=== PATIENT | female | born 1995 | race Caucasian/White ===

== ENCOUNTER 2017-09-09 19:04 | Inpatient (IN) | payer BC ==
[~2017-09-09] VITALS: Ht 157.5 cm; Wt 74.8 kg
[2017-09-09 19:20] VITALS: BP_SYST 119
[2017-09-09 19:38] LABS: BILIRUBIN,URINE 1+ (NEGATIVE); BLOOD, URINE NEGATIVE (NEGATIVE); CLARITY/URINE CLEAR (CLEAR); COLOR,URINE YELLOW (YELLOW); GLUCOSE,URINE NEGATIVE (NEGATIVE); KETONES,URINE 1+ (NEGATIVE); LEUKOCYTE ESTERASE ,URINE TRACE (NEGATIVE); NITRITE, URINE NEGATIVE (NEGATIVE); PH,URINE 5.5 (5.0-8.0); PROTEIN URINE NEGATIVE (NEGATIVE)
[2017-09-09 19:40] LABS: UROBILINOGEN,URINE >=8 (0.2-1.0)
[2017-09-09 19:49] LABS: BASOPHILS % (AUTO) 0.6 % (0.0-2.0); EOSINOPHILS # (AUTO) 0.1 K/uL (0.0-0.4); EOSINOPHILS % (AUTO) 0.8 % (0.0-4.0); HEMATOCRIT 35.3 % (36-48); HEMOGLOBIN 11.2 g/dL (12.0-16.0); LYMPHOCYTES # (AUTO) 1.7 K/uL (1.0-5.5); LYMPHOCYTES % (AUTO) 22.3 % (20.5-51.5); MEAN CORPUSCULAR HEMOGLOBIN 23 pg (27-31); MEAN CORPUSCULAR HGB CONC 32 % (32-36); MEAN CORPUSCULAR VOLUME 73 fL (79.0-98.0); MONOCYTES # (AUTO) 0.8 K/uL (0.0-1.0); MONOCYTES % (AUTO) 10.3 % (1.7-9.3); NEUTROPHILS # (AUTO) 4.8 K/uL (1.8-7.7); PLATELET COUNT (AUTO) 324 K/uL (130-430); RED BLOOD CELL COUNT(AUTO) 4.87 MIL/uL (4.2-6.2); RED CELL DISTRIBUTION WIDTH 16.7 % (9.0-15.0); WHITE BLOOD COUNT (AUTO) 7.4 K/uL (4.8-10.8)
[2017-09-09 19:53] LABS: BACTERIA,URINE FEW /HPF (None Seen); MUCUS,URINE 1+ /LPF (None Seen); RBC,URINE 0-3 /HPF (0-3)
[2017-09-09] MEDS ORDERED: PROCHLORPERAZINE EDISYLATE 10 MG/2 ML VIAL IVP ONE (20:00)
[2017-09-09] MEDS ORDERED: NACL 0.9% 1,000 ML IV ONE (20:00)
[2017-09-09 20:04] LABS: CALCIUM 9.1 mg/dL (8.4-11.0); CREATININE 0.9 mg/dL (0.55-1.30); POTASSIUM 3.4 mmol/L (3.5-5.1)
[2017-09-09 20:09] LABS: ALBUMIN 4.2 g/dL (3.4-4.8); TOTAL BILIRUBIN 1.4 mg/dL (0.0-1.0)
[2017-09-09] MEDS ORDERED: MORPHINE 4 MG/ML INJ. SYRINGE IVP ONE (20:15)
[2017-09-09] MEDS ORDERED: ONDANSETRON HCL 4 MG/2 ML VIAL IVP ONE (22:45)
[2017-09-09 23:00] VITALS: BP_SYST 111
[2017-09-09 23:09] VITALS: BP_SYST 111
[2017-09-09] MEDS ORDERED: ONDANSETRON HCL 4 MG/2 ML VIAL IVP PRN (23:15)
[2017-09-09] MEDS ORDERED: MORPHINE 4 MG/ML INJ. SYRINGE IVP PRN (23:15)
[2017-09-09] MEDS ORDERED: ACETAMINOPHEN 325 MG TABLET PO PRN (23:15)
[2017-09-09] MEDS ORDERED: MORPHINE 2 MG/ML INJ. SYRINGE IVP PRN (23:15)
[2017-09-09] MEDS: LR 1,000 ML IV SCH (23:34)
[2017-09-10 07:05] LABS: BASOPHILS % (AUTO) 0.2 % (0.0-2.0); EOSINOPHILS % (AUTO) 0.1 % (0.0-4.0); HEMATOCRIT 31.8 % (36-48); HEMOGLOBIN 10.3 g/dL (12.0-16.0); LYMPHOCYTES # (AUTO) 0.9 K/uL (1.0-5.5); LYMPHOCYTES % (AUTO) 15.1 % (20.5-51.5); MEAN CORPUSCULAR HEMOGLOBIN 24 pg (27-31); MEAN CORPUSCULAR HGB CONC 32 % (32-36); MEAN CORPUSCULAR VOLUME 73 fL (79.0-98.0); MONOCYTES # (AUTO) 0.4 K/uL (0.0-1.0); MONOCYTES % (AUTO) 6.4 % (1.7-9.3); NEUTROPHILS # (AUTO) 4.6 K/uL (1.8-7.7); NEUTROPHILS % (AUTO) 78.2 % (40.0-70.0); RED BLOOD CELL COUNT(AUTO) 4.35 MIL/uL (4.2-6.2); RED CELL DISTRIBUTION WIDTH 16.6 % (9.0-15.0); WHITE BLOOD COUNT (AUTO) 5.9 K/uL (4.8-10.8)
[2017-09-10 07:08] LABS: ALBUMIN 3.5 g/dL (3.4-4.8); CALCIUM 8.9 mg/dL (8.4-11.0); CREATININE 0.67 mg/dL (0.55-1.30); TOTAL BILIRUBIN 0.7 mg/dL (0.0-1.0)
[2017-09-10 08:30] VITALS: BP_SYST 113
[2017-09-10] MEDS: LR 1,000 ML IV SCH ×2 (08:56→21:53)
[2017-09-10] MEDS ORDERED: CALCIUM CARBONATE 500 MG/ TAB.CHEW PO PRN (09:00)
[2017-09-10 10:34] LABS: PLATELET COUNT (AUTO) 290 K/uL (130-430)
[2017-09-10 11:54] VITALS: BP_SYST 106
[2017-09-10] MEDS ORDERED: PANTOPRAZOLE SODIUM 40 MG/VIAL (PROTONIX) IVP ONE ×2 (14:30→15:15)
[2017-09-10] MEDS: traMADol HCL HCL 50 MG TABLET (ULTRAM) PO PRN (15:28)
[2017-09-10 16:01] VITALS: BP_SYST 126
[2017-09-10] MEDS: MORPHINE 4 MG/ML INJ. SYRINGE IVP PRN ×2 (17:28→21:52)
[2017-09-10 20:00] VITALS: BP_SYST 122
[2017-09-11 01:15] VITALS: BP_SYST 113
[2017-09-11] MEDS: LR 1,000 ML IV SCH ×3 (05:00→18:28)
[2017-09-11 06:50] LABS: BASOPHILS % (AUTO) 0.5 % (0.0-2.0); EOSINOPHILS % (AUTO) 0.7 % (0.0-4.0); HEMATOCRIT 29.9 % (36-48); HEMOGLOBIN 9.5 g/dL (12.0-16.0); LYMPHOCYTES # (AUTO) 1.5 K/uL (1.0-5.5); LYMPHOCYTES % (AUTO) 28.3 % (20.5-51.5); MEAN CORPUSCULAR HEMOGLOBIN 23 pg (27-31); MEAN CORPUSCULAR HGB CONC 32 % (32-36); MEAN CORPUSCULAR VOLUME 73 fL (79.0-98.0); MONOCYTES # (AUTO) 0.6 K/uL (0.0-1.0); MONOCYTES % (AUTO) 10.3 % (1.7-9.3); NEUTROPHILS # (AUTO) 3.3 K/uL (1.8-7.7); NEUTROPHILS % (AUTO) 60.2 % (40.0-70.0); PLATELET COUNT (AUTO) 252 K/uL (130-430); RED BLOOD CELL COUNT(AUTO) 4.09 MIL/uL (4.2-6.2); RED CELL DISTRIBUTION WIDTH 16.6 % (9.0-15.0); WHITE BLOOD COUNT (AUTO) 5.4 K/uL (4.8-10.8)
[2017-09-11 07:04] LABS: INR 1.1 (0.8-1.2); PROTHROMBIN TIME 11.2 SECS (9.5-12.5)
[2017-09-11 07:20] LABS: ALBUMIN 3.3 g/dL (3.4-4.8); CALCIUM 8.8 mg/dL (8.4-11.0); CREATININE 0.75 mg/dL (0.55-1.30); POTASSIUM 3.8 mmol/L (3.5-5.1); TOTAL BILIRUBIN 0.5 mg/dL (0.0-1.0)
[2017-09-11 08:27] VITALS: BP_SYST 111
[2017-09-11 11:22] VITALS: BP_SYST 113
[2017-09-11 15:37] VITALS: BP_SYST 131
[2017-09-11 20:00] VITALS: BP_SYST 125
[2017-09-12] VITALS (7 sets, daily range): BP systolic 114–128
[2017-09-12] MEDS: LR 1,000 ML IV SCH (05:13)
[2017-09-12 07:05] LABS: BASOPHILS % (AUTO) 0.4 % (0.0-2.0); EOSINOPHILS # (AUTO) 0.1 K/uL (0.0-0.4); EOSINOPHILS % (AUTO) 0.9 % (0.0-4.0); HEMATOCRIT 31.1 % (36-48); LYMPHOCYTES # (AUTO) 1.2 K/uL (1.0-5.5); LYMPHOCYTES % (AUTO) 21.1 % (20.5-51.5); MEAN CORPUSCULAR HEMOGLOBIN 23 pg (27-31); MEAN CORPUSCULAR HGB CONC 32 % (32-36); MEAN CORPUSCULAR VOLUME 72 fL (79.0-98.0); MONOCYTES # (AUTO) 0.6 K/uL (0.0-1.0); MONOCYTES % (AUTO) 10.4 % (1.7-9.3); NEUTROPHILS # (AUTO) 3.9 K/uL (1.8-7.7); NEUTROPHILS % (AUTO) 67.2 % (40.0-70.0); PLATELET COUNT (AUTO) 261 K/uL (130-430); RED CELL DISTRIBUTION WIDTH 16.7 % (9.0-15.0); WHITE BLOOD COUNT (AUTO) 5.8 K/uL (4.8-10.8)
[2017-09-12 07:14] LABS: CALCIUM 8.8 mg/dL (8.4-11.0); CREATININE 0.72 mg/dL (0.55-1.30); POTASSIUM 3.8 mmol/L (3.5-5.1)
[2017-09-12 07:21] LABS: ALBUMIN 3.4 g/dL (3.4-4.8); TOTAL BILIRUBIN 0.8 mg/dL (0.0-1.0)
[2017-09-12] MEDS ORDERED: KETOROLAC TROMETHAMINE 30 MG VIAL IVP ONE (12:40)
[2017-09-12] MEDS ORDERED: MIDAZOLAM HCL 5 MG/5 ML VIAL IVP ONE (12:40)
[2017-09-12] MEDS ORDERED: DEXAMETHASONE SOD PHOSPHATE 4 MG/ML VIAL IVP ONE (12:40)
[2017-09-12] MEDS ORDERED: fentaNYL CITRATE 250 MCG/5 ML AMP IV ONE (12:40)
[2017-09-12] MEDS ORDERED: ONDANSETRON HCL 4 MG/2 ML VIAL IVP ONE (12:40)
[2017-09-12] MEDS ORDERED: SEVOFLURANE 15 MIN GAS INH ONE (12:40)
[2017-09-12] MEDS ORDERED: ROCURONIUM BROMIDE 10 MG/ML (ZEMURON) IV ONE (12:40)
[2017-09-12] MEDS ORDERED: CEFAZOLIN 1 GM IVPB PREMIX 50 ML IV ONE (12:40)
[2017-09-12] MEDS ORDERED: PROPOFOL 200MG/ 20ML VIAL (DIPRIVAN) IV ONE (12:40)
[2017-09-12] MEDS ORDERED: GADOPENTETATE DIMEGLUMINE 15 ML VIAL IV ONE (13:37)
[2017-09-12] MEDS ORDERED: IOHEXOL 100 ML IV ONE (13:37)
[2017-09-12] MEDS ORDERED: LR 1,000 ML IV SCH (14:01)
[2017-09-12] MEDS ORDERED: MORPHINE 4 MG/ML INJ. SYRINGE IVP PRN ×3 (14:15)
[2017-09-12] MEDS ORDERED: METOCLOPRAMIDE HCL 10 MG/2 ML VIAL IVP PRN (14:15)
[2017-09-12] MEDS ORDERED: HYDROmorphone 1 MG INJ. 1 MG/ML AMPUL IVP PRN (14:30)
[2017-09-12] MEDS ORDERED: ACETAMINOPHEN 325 MG TABLET PO PRN (14:30)
[2017-09-12] MEDS ORDERED: ONDANSETRON HCL 4 MG/2 ML VIAL IVP PRN (14:30)
[2017-09-12] MEDS: traMADol HCL HCL 50 MG TABLET (ULTRAM) PO PRN (15:33)
[2017-09-12] MEDS: CEFAZOLIN 1 GM IVPB PREMIX 50 ML IV SCH (16:41)
[2017-09-12] MEDS: D5/0.45 NS 1,000 ML IV SCH (16:42)
[2017-09-12] MEDS: HYDROcodone/ACETAMIN 5-325 MG TAB (NORCO/ VICODIN) PO PRN (22:41)
[2017-09-13] MEDS: CEFAZOLIN 1 GM IVPB PREMIX 50 ML IV SCH (00:42)
[2017-09-13] MEDS: D5/0.45 NS 1,000 ML IV SCH ×3 (04:16→20:23)
[2017-09-13] MEDS: HYDROcodone/ACETAMIN 5-325 MG TAB (NORCO/ VICODIN) PO PRN (07:05)
[2017-09-13 07:23] LABS: BASOPHILS % (AUTO) 0.4 % (0.0-2.0); EOSINOPHILS % (AUTO) 0.3 % (0.0-4.0); HEMATOCRIT 33.9 % (36-48); HEMOGLOBIN 10.7 g/dL (12.0-16.0); LYMPHOCYTES # (AUTO) 1.5 K/uL (1.0-5.5); LYMPHOCYTES % (AUTO) 15.9 % (20.5-51.5); MEAN CORPUSCULAR HEMOGLOBIN 23 pg (27-31); MEAN CORPUSCULAR HGB CONC 32 % (32-36); MEAN CORPUSCULAR VOLUME 73 fL (79.0-98.0); MONOCYTES # (AUTO) 0.8 K/uL (0.0-1.0); MONOCYTES % (AUTO) 8.7 % (1.7-9.3); NEUTROPHILS # (AUTO) 7.4 K/uL (1.8-7.7); PLATELET COUNT (AUTO) 298 K/uL (130-430); RED BLOOD CELL COUNT(AUTO) 4.68 MIL/uL (4.2-6.2); WHITE BLOOD COUNT (AUTO) 9.7 K/uL (4.8-10.8)
[2017-09-13 07:40] LABS: ALBUMIN 3.4 g/dL (3.4-4.8); CALCIUM 9.1 mg/dL (8.4-11.0); CREATININE 0.87 mg/dL (0.55-1.30); POTASSIUM 3.6 mmol/L (3.5-5.1); TOTAL BILIRUBIN 0.8 mg/dL (0.0-1.0)
[2017-09-13 07:59] VITALS: BP_SYST 108
[2017-09-13 11:15] VITALS: BP_SYST 104
[2017-09-13 13:11] LABS: NEUTROPHILS % (AUTO) 74.7 % (40.0-70.0)
[2017-09-13] MEDS: MORPHINE 4 MG/ML INJ. SYRINGE IVP PRN ×2 (14:03→18:32)
[2017-09-13 16:39] VITALS: BP_SYST 105
[2017-09-13 20:00] VITALS: BP_SYST 110
[2017-09-13 23:18] VITALS: BP_SYST 109
[2017-09-14] MEDS: D5/0.45 NS 1,000 ML IV SCH ×2 (01:01→16:23)
[2017-09-14 07:12] LABS: BASOPHILS % (AUTO) 0.3 % (0.0-2.0); EOSINOPHILS # (AUTO) 0.1 K/uL (0.0-0.4); EOSINOPHILS % (AUTO) 1.1 % (0.0-4.0); HEMATOCRIT 30.8 % (36-48); HEMOGLOBIN 9.9 g/dL (12.0-16.0); LYMPHOCYTES # (AUTO) 1.2 K/uL (1.0-5.5); LYMPHOCYTES % (AUTO) 14.8 % (20.5-51.5); MEAN CORPUSCULAR HEMOGLOBIN 24 pg (27-31); MEAN CORPUSCULAR HGB CONC 32 % (32-36); MEAN CORPUSCULAR VOLUME 73 fL (79.0-98.0); MONOCYTES # (AUTO) 0.7 K/uL (0.0-1.0); MONOCYTES % (AUTO) 8.8 % (1.7-9.3); NEUTROPHILS # (AUTO) 5.8 K/uL (1.8-7.7); PLATELET COUNT (AUTO) 242 K/uL (130-430); RED BLOOD CELL COUNT(AUTO) 4.23 MIL/uL (4.2-6.2); RED CELL DISTRIBUTION WIDTH 17.1 % (9.0-15.0); WHITE BLOOD COUNT (AUTO) 7.8 K/uL (4.8-10.8)
[2017-09-14] MEDS: MORPHINE 4 MG/ML INJ. SYRINGE IVP PRN (07:17)
[2017-09-14 07:21] LABS: CALCIUM 8.5 mg/dL (8.4-11.0); CREATININE 0.75 mg/dL (0.55-1.30); POTASSIUM 3.9 mmol/L (3.5-5.1); TOTAL BILIRUBIN 0.5 mg/dL (0.0-1.0)
[2017-09-14 08:00] VITALS: BP_SYST 124
[2017-09-14 12:29] VITALS: BP_SYST 116
[2017-09-14 16:40] VITALS: BP_SYST 109
[2017-09-14 17:13] VITALS: BP_SYST 109
[2017-09-14] MEDS ORDERED: HYDR-1189 PO (18:21)
[2017-09-14] MEDS ORDERED: ONDA8TAB6 PO (18:22)
[2017-09-14] MEDS ORDERED: CEPH-568 PO (18:23)
[2017-09-16] MEDS ORDERED: MILK OF MAGNESIA 30 ML UDC PO PRN (11:15)
[2017-09-16] MEDS ORDERED: BISACODYL 10 MG/SUPPOSITORY RC PRN (11:15)
== END 2017-09-14 18:50 | disposition home or self-care (01) | DRG 419 ==
LOC: SED 19:04 → SMU 22:48
PROVIDERS: ADMIT Internal Medicine; ATTEND Internal Medicine
PROC: BF131ZZ Fluoroscopy of Gallbladder and Bile Ducts using Low Osmolar Contrast (ICD-10-PCS; 2017-09-12)
PROC: 0FT44ZZ Resection of Gallbladder, Percutaneous Endoscopic Approach (ICD-10-PCS; principal; 2017-09-12 12:00)
DX: K80.62 Calculus of gallbladder and bile duct with acute cholecystitis without obstruction (principal); R79.89 Other specified abnormal findings of blood chemistry; Z79.899 Other long term (current) drug therapy
CPT/HCPCS: 36415; 74181; 76000; 76705; 78226; 80053; 81000-TC; 81025; 83690-TC; 84703; 85025; 85610-TC; 85730-TC; 87070-TC; 87075-TC; 87081; 88304; 94010; 96361; 96374; 96375; 99285; A9537; A9579; C9113; J0690; J0780; J1100; J1885; J2250; J2270; J2405; J2704; J3010; J7030; J7120; Q9967

== ENCOUNTER 2017-09-14 23:12 | Emergency (ER) | payer BC ==
[~2017-09-14] VITALS: Ht 157.5 cm; Wt 74.8 kg
[~2017-09-14 23:12] MED LIST: CEPH-568 PO; HYDR-1189 PO; ONDA8TAB6 PO
[2017-09-14 23:21] VITALS: BP_SYST 133
[2017-09-14] MEDS ORDERED: MORPHINE 4 MG/ML INJ. SYRINGE IVP ONE (23:45)
[2017-09-14] MEDS ORDERED: ONDANSETRON HCL 4 MG/2 ML VIAL IVP ONE (23:45)
[2017-09-14] MEDS ORDERED: NACL 0.9% 1,000 ML IV ONE (23:45)
[2017-09-15] LABS: BILIRUBIN,URINE NEGATIVE (NEGATIVE); CLARITY/URINE CLEAR (CLEAR); COLOR,URINE YELLOW (YELLOW); GLUCOSE,URINE NEGATIVE (NEGATIVE); KETONES,URINE TRACE (NEGATIVE); LEUKOCYTE ESTERASE ,URINE NEGATIVE (NEGATIVE); NITRITE, URINE NEGATIVE (NEGATIVE); PROTEIN URINE NEGATIVE (NEGATIVE)
[2017-09-15 00:02] LABS: BLOOD, URINE TRACE (NEGATIVE)
[2017-09-15 00:13] LABS: BACTERIA,URINE FEW /HPF (None Seen); RBC,URINE 0-3 /HPF (0-3); WBC,URINE 0-3 /HPF (0-3)
[2017-09-15 00:24] LABS: BASOPHILS % (AUTO) 0.3 % (0.0-2.0); EOSINOPHILS # (AUTO) 0.1 K/uL (0.0-0.4); EOSINOPHILS % (AUTO) 1.2 % (0.0-4.0); HEMOGLOBIN 11.4 g/dL (12.0-16.0); LYMPHOCYTES # (AUTO) 1.1 K/uL (1.0-5.5); MEAN CORPUSCULAR HEMOGLOBIN 23 pg (27-31); MEAN CORPUSCULAR HGB CONC 31 % (32-36); MEAN CORPUSCULAR VOLUME 73 fL (79.0-98.0); MONOCYTES # (AUTO) 0.7 K/uL (0.0-1.0); MONOCYTES % (AUTO) 8.5 % (1.7-9.3); NEUTROPHILS # (AUTO) 6.3 K/uL (1.8-7.7); PLATELET COUNT (AUTO) 339 K/uL (130-430); RED BLOOD CELL COUNT(AUTO) 5.07 MIL/uL (4.2-6.2); WHITE BLOOD COUNT (AUTO) 8.2 K/uL (4.8-10.8)
[2017-09-15 00:27] LABS: CALCIUM 9.2 mg/dL (8.4-11.0); CREATININE 0.77 mg/dL (0.55-1.30); POTASSIUM 3.6 mmol/L (3.5-5.1)
[2017-09-15] MEDS ORDERED: MORPHINE 2 MG/ML INJ. SYRINGE IVP ONE ×2 (00:30→01:15)
[2017-09-15 00:33] LABS: ALBUMIN 3.9 g/dL (3.4-4.8)
[2017-09-15] MEDS ORDERED: MORPHINE SULFATE 10 MG/ML VIAL ONE ×2 (00:33→01:13)
[2017-09-15 00:38] LABS: TOTAL BILIRUBIN 0.8 mg/dL (0.0-1.0)
[2017-09-15 02:38] VITALS: BP_SYST 120
== END 2017-09-15 02:38 | disposition home or self-care (01) ==
LOC: SED 23:12
DX: G89.18 Other acute postprocedural pain (principal); K59.00 Constipation, unspecified; Z90.49 Acquired absence of other specified parts of digestive tract
CPT/HCPCS: 36415; 80053; 81000; 81025; 85025; 96361; 96374; 96375; 96376; 99284; J2270; J2405; J7030

== ENCOUNTER 2017-09-16 07:27 | Inpatient (IN) | payer BC ==
[~2017-09-16] VITALS: Ht 157.5 cm; Wt 77.1 kg
[2017-09-16 07:27] VITALS: BP_SYST 113
[2017-09-16] MEDS ORDERED: NACL 0.9% 1,000 ML IV ONE (07:45)
[2017-09-16] MEDS ORDERED: MORPHINE 4 MG/ML INJ. SYRINGE IVP ONE (07:45)
[2017-09-16] MEDS ORDERED: ONDANSETRON HCL 4 MG/2 ML VIAL IVP ONE ×2 (07:45→13:05)
[2017-09-16 08:17] LABS: CALCIUM 9.5 mg/dL (8.4-11.0); CREATININE 0.81 mg/dL (0.55-1.30); POTASSIUM 4.3 mmol/L (3.5-5.1)
[2017-09-16 08:18] LABS: BILIRUBIN,URINE 2+ (NEGATIVE); CLARITY/URINE SL HAZY (CLEAR); COLOR,URINE YELLOW (YELLOW); GLUCOSE,URINE NEGATIVE (NEGATIVE); KETONES,URINE 3+ (NEGATIVE); LEUKOCYTE ESTERASE ,URINE TRACE (NEGATIVE); NITRITE, URINE NEGATIVE (NEGATIVE); PROTEIN URINE 1+ (NEGATIVE)
[2017-09-16 08:21] LABS: INR 1.1 (0.8-1.2); PROTHROMBIN TIME 11.2 SECS (9.5-12.5)
[2017-09-16 08:22] LABS: ALBUMIN 4.1 g/dL (3.4-4.8); TOTAL BILIRUBIN 1.3 mg/dL (0.0-1.0)
[2017-09-16 08:23] LABS: BLOOD, URINE TRACE (NEGATIVE)
[2017-09-16 08:27] LABS: BASOPHILS % (AUTO) 0.1 % (0.0-2.0); EOSINOPHILS # (AUTO) 0.1 K/uL (0.0-0.4); EOSINOPHILS % (AUTO) 1.2 % (0.0-4.0); HEMATOCRIT 38.1 % (36-48); HEMOGLOBIN 11.6 g/dL (12.0-16.0); LYMPHOCYTES # (AUTO) 0.6 K/uL (1.0-5.5); LYMPHOCYTES % (AUTO) 5.5 % (20.5-51.5); MEAN CORPUSCULAR HEMOGLOBIN 22 pg (27-31); MEAN CORPUSCULAR HGB CONC 30 % (32-36); MEAN CORPUSCULAR VOLUME 73 fL (79.0-98.0); MONOCYTES # (AUTO) 0.6 K/uL (0.0-1.0); MONOCYTES % (AUTO) 6.2 % (1.7-9.3); NEUTROPHILS # (AUTO) 9.1 K/uL (1.8-7.7); PLATELET COUNT (AUTO) 360 K/uL (130-430); RED BLOOD CELL COUNT(AUTO) 5.24 MIL/uL (4.2-6.2)
[2017-09-16 08:28] LABS: WHITE BLOOD COUNT (AUTO) 10.4 K/uL (4.8-10.8)
[2017-09-16 09:08] LABS: BACTERIA,URINE FEW /HPF (None Seen); MUCUS,URINE None Seen /LPF (None Seen); RBC,URINE 0-3 /HPF (0-3); WBC,URINE 0-3 /HPF (0-3)
[2017-09-16] MEDS ORDERED: D5/0.45 NS 1,000 ML IV SCH (10:15)
[2017-09-16 10:50] VITALS: BP_SYST 125
[2017-09-16] MEDS ORDERED: ONDANSETRON HCL 4 MG/2 ML VIAL IVP PRN ×2 (11:00→18:15)
[2017-09-16] MEDS ORDERED: MORPHINE 4 MG/ML INJ. SYRINGE IVP PRN ×2 (11:00)
[2017-09-16] MEDS ORDERED: KETOROLAC TROMETHAMINE 30 MG VIAL IVP ONE ×2 (11:15→13:05)
[2017-09-16] MEDS ORDERED: MILK OF MAGNESIA 30 ML UDC PO PRN (11:30)
[2017-09-16] MEDS ORDERED: BISACODYL 10 MG/SUPPOSITORY RC PRN (12:45)
[2017-09-16] MEDS ORDERED: fentaNYL CITRATE/PF 100 MCG/2 ML AMP IVP ONE (13:05)
[2017-09-16] MEDS ORDERED: MIDAZOLAM HCL 5 MG/5 ML VIAL IVP ONE (13:05)
[2017-09-16] MEDS ORDERED: PROPOFOL 200MG/ 20ML VIAL (DIPRIVAN) IV ONE (13:05)
[2017-09-16] MEDS ORDERED: LIDOCAINE 1% 10 MG/ML, 20 ML MDV INJ ONE (13:05)
[2017-09-16] MEDS ORDERED: SEVOFLURANE 15 MIN GAS INH ONE (13:05)
[2017-09-16] MEDS ORDERED: SUCCINYLCHOLINE CHLORIDE 20 MG/ML(QUELICIN) IVP ONE (13:05)
[2017-09-16] MEDS ORDERED: LR 1,000 ML IV.SOLN IV ONE (13:05)
[2017-09-16] MEDS ORDERED: MEPERIDINE HCL/PF 100 MG/ML AMP IM ONE (13:05)
[2017-09-16] MEDS ORDERED: DEXAMETHASONE SOD PHOSPHATE 4 MG/ML VIAL IVP ONE (13:05)
[2017-09-16] MEDS: KETOROLAC TROMETHAMINE 30 MG VIAL IVP PRN (16:06)
[2017-09-16] MEDS ORDERED: MORPHINE 2 MG/ML INJ. SYRINGE IVP PRN (18:15)
[2017-09-16] MEDS ORDERED: LORazepam 2 MG/ML VIAL IVP PRN (18:15)
[2017-09-16] MEDS: MORPHINE 4 MG/ML INJ. SYRINGE IVP PRN ×2 (19:16→23:39)
[2017-09-16 19:24] VITALS: BP_SYST 125
[2017-09-16 19:40] VITALS: BP_SYST 125
[2017-09-16 23:46] VITALS: BP_SYST 119
[2017-09-17 00:20] VITALS: BP_SYST 120
[2017-09-17] MEDS: D5/0.45 NS 1,000 ML IV SCH ×3 (01:48→20:21)
[2017-09-17] MEDS: KETOROLAC TROMETHAMINE 30 MG VIAL IVP PRN ×3 (01:57→18:20)
[2017-09-17 04:38] VITALS: BP_SYST 118
[2017-09-17] MEDS: MORPHINE 4 MG/ML INJ. SYRINGE IVP PRN ×2 (04:39→08:27)
[2017-09-17 08:04] LABS: BASOPHILS % (AUTO) 0.2 % (0.0-2.0); EOSINOPHILS # (AUTO) 0.2 K/uL (0.0-0.4); EOSINOPHILS % (AUTO) 1.7 % (0.0-4.0); HEMATOCRIT 32.7 % (36-48); HEMOGLOBIN 10.7 g/dL (12.0-16.0); LYMPHOCYTES # (AUTO) 0.6 K/uL (1.0-5.5); LYMPHOCYTES % (AUTO) 6.3 % (20.5-51.5); MEAN CORPUSCULAR HEMOGLOBIN 24 pg (27-31); MEAN CORPUSCULAR HGB CONC 33 % (32-36); MEAN CORPUSCULAR VOLUME 73 fL (79.0-98.0); MONOCYTES # (AUTO) 0.8 K/uL (0.0-1.0); MONOCYTES % (AUTO) 9.3 % (1.7-9.3); NEUTROPHILS # (AUTO) 7.3 K/uL (1.8-7.7); NEUTROPHILS % (AUTO) 82.5 % (40.0-70.0); PLATELET COUNT (AUTO) 278 K/uL (130-430); RED BLOOD CELL COUNT(AUTO) 4.51 MIL/uL (4.2-6.2); RED CELL DISTRIBUTION WIDTH 17.2 % (9.0-15.0); WHITE BLOOD COUNT (AUTO) 8.9 K/uL (4.8-10.8)
[2017-09-17 08:21] LABS: INR 1.2 (0.8-1.2); PROTHROMBIN TIME 11.7 SECS (9.5-12.5)
[2017-09-17 08:23] VITALS: BP_SYST 123
[2017-09-17 08:27] LABS: ALBUMIN 3.1 g/dL (3.4-4.8); CALCIUM 8.7 mg/dL (8.4-11.0); CREATININE 0.64 mg/dL (0.55-1.30); POTASSIUM 4.2 mmol/L (3.5-5.1)
[2017-09-17 12:24] VITALS: BP_SYST 125
[2017-09-17] MEDS ORDERED: IOHEXOL 50 ML IV ONE (13:25)
[2017-09-17] MEDS ORDERED: MORPHINE 4 MG/ML INJ. SYRINGE IVP PRN (14:30)
[2017-09-17] MEDS ORDERED: MEPERIDINE HCL/PF 25 MG/ML DISP.SYRIN IVP PRN (14:30)
[2017-09-17] MEDS ORDERED: KETOROLAC TROMETHAMINE 30 MG VIAL IVP ONE (14:30)
[2017-09-17] MEDS ORDERED: MIDAZOLAM HCL 5 MG/5 ML VIAL IVP PRN (14:30)
[2017-09-17] MEDS ORDERED: ONDANSETRON HCL 4 MG/2 ML VIAL IVP ONE (14:30)
[2017-09-17] MEDS ORDERED: NALOXONE HCL 0.4 MG/ML AMP (NARCAN) IVP ONE (14:30)
[2017-09-17] MEDS ORDERED: fentaNYL CITRATE/PF 100 MCG/2 ML AMP IVP PRN (14:30)
[2017-09-17] MEDS ORDERED: cefTRIAXone 1 GM in D5W 50 ML IV SCH (16:00)
[2017-09-17 16:12] VITALS: BP_SYST 118
[2017-09-17 20:21] VITALS: BP_SYST 117
[2017-09-18] MEDS: KETOROLAC TROMETHAMINE 30 MG VIAL IVP PRN ×2 (00:17→06:42)
[2017-09-18 08:47] LABS: ALBUMIN 2.8 g/dL (3.4-4.8); CALCIUM 8.9 mg/dL (8.4-11.0); CREATININE 0.64 mg/dL (0.55-1.30); POTASSIUM 3.8 mmol/L (3.5-5.1); TOTAL BILIRUBIN 0.9 mg/dL (0.0-1.0)
[2017-09-18 08:55] LABS: BASOPHILS % (AUTO) 0.2 % (0.0-2.0); EOSINOPHILS # (AUTO) 0.1 K/uL (0.0-0.4); EOSINOPHILS % (AUTO) 1.2 % (0.0-4.0); HEMOGLOBIN 9.5 g/dL (12.0-16.0); LYMPHOCYTES % (AUTO) 10.8 % (20.5-51.5); MEAN CORPUSCULAR HEMOGLOBIN 23 pg (27-31); MEAN CORPUSCULAR HGB CONC 32 % (32-36); MEAN CORPUSCULAR VOLUME 73 fL (79.0-98.0); MONOCYTES # (AUTO) 1.1 K/uL (0.0-1.0); MONOCYTES % (AUTO) 11.5 % (1.7-9.3); NEUTROPHILS # (AUTO) 7.4 K/uL (1.8-7.7); NEUTROPHILS % (AUTO) 76.3 % (40.0-70.0); PLATELET COUNT (AUTO) 295 K/uL (130-430); RED BLOOD CELL COUNT(AUTO) 4.09 MIL/uL (4.2-6.2); RED CELL DISTRIBUTION WIDTH 17.2 % (9.0-15.0); WHITE BLOOD COUNT (AUTO) 9.6 K/uL (4.8-10.8)
[2017-09-18 09:35] VITALS: BP_SYST 108
[2017-09-18] MEDS: D5/0.45 NS 1,000 ML IV SCH (10:32)
[2017-09-18 12:00] VITALS: BP_SYST 107
[2017-09-18 15:56] VITALS: BP_SYST 107
[2017-09-18 16:00] VITALS: BP_SYST 128
== END 2017-09-18 16:40 | disposition home or self-care (01) | DRG 446 ==
LOC: SED 07:27 → SMU 10:14
PROVIDERS: ADMIT Preventive Medicine Preventive Medicine/Occupational Environmental Medicine; ATTEND Preventive Medicine Preventive Medicine/Occupational Environmental Medicine
PROC: 0FC98ZZ Extirpation of Matter from Common Bile Duct, Via Natural or Artificial Opening Endoscopic (ICD-10-PCS; principal; 2017-09-17 13:00)
DX: K80.50 Calculus of bile duct without cholangitis or cholecystitis without obstruction (principal); D64.9 Anemia, unspecified; R73.9 Hyperglycemia, unspecified; Z88.1 Allergy status to other antibiotic agents; Z83.3 Family history of diabetes mellitus; Z90.49 Acquired absence of other specified parts of digestive tract
CPT/HCPCS: 36415; 71045; 76000; 80053; 81000-TC; 82150-TC; 82550-TC; 83605; 83690-TC; 84484; 85025; 85610-TC; 85730-TC; 87040-TC; 87081; 93005; 96361; 96374; 96375; 99285; J0330; J0696; J1100; J1885; J2001; J2175; J2250; J2270; J2405; J2704; J3010; J7030; J7060; J7120; Q9967

== ENCOUNTER 2017-11-23 06:45 | Day surgery (SDC) | payer BC ==
[2017-11-21 12:45] LABS: HCG,QUAL RESULT NEGATIVE (NEGATIVE)
[~2017-11-23] VITALS: Ht 157.5 cm; Wt 75.7 kg
[~2017-11-23 06:45] MED LIST changes: -CEPH-568 PO
[2017-11-23] MEDS ORDERED: IOHEXOL 50 ML IV ONE (07:48)
[2017-11-23] MEDS ORDERED: DEXAMETHASONE SOD PHOSPHATE 4 MG/ML VIAL IVP ONE (08:00)
[2017-11-23] MEDS ORDERED: LIDOCAINE 1% 10 MG/ML, 20 ML MDV INJ ONE (08:00)
[2017-11-23] MEDS ORDERED: fentaNYL CITRATE 250 MCG/5 ML AMP IV ONE (08:00)
[2017-11-23] MEDS ORDERED: MEPERIDINE HCL/PF 100 MG/ML AMP IM ONE (08:00)
[2017-11-23] MEDS ORDERED: LR 1,000 ML IV.SOLN IV ONE (08:00)
[2017-11-23] MEDS ORDERED: SEVOFLURANE 15 MIN GAS INH ONE (08:00)
[2017-11-23] MEDS ORDERED: MIDAZOLAM HCL 5 MG/5 ML VIAL IVP ONE (08:00)
[2017-11-23] MEDS ORDERED: ONDANSETRON HCL 4 MG/2 ML VIAL IVP ONE ×2 (08:00→09:15)
[2017-11-23] MEDS ORDERED: SUCCINYLCHOLINE CHLORIDE 20 MG/ML(QUELICIN) IVP ONE (08:00)
[2017-11-23] MEDS ORDERED: HYDROmorphone 1 MG INJ. 1 MG/ML AMPUL IVP PRN (09:15)
[2017-11-23] MEDS ORDERED: fentaNYL CITRATE/PF 100 MCG/2 ML AMP IVP PRN (09:15)
[2017-11-23] MEDS ORDERED: NALOXONE HCL 0.4 MG/ML AMP (NARCAN) IVP ONE (09:15)
[2017-11-23] MEDS ORDERED: MIDAZOLAM HCL 5 MG/5 ML VIAL IVP PRN (09:15)
[2017-11-23] MEDS ORDERED: KETOROLAC TROMETHAMINE 30 MG VIAL IM ONE (09:15)
[2017-11-23] MEDS ORDERED: MEPERIDINE HCL/PF 25 MG/ML DISP.SYRIN IVP PRN (09:15)
[2017-11-23 14:18] VITALS: BP_SYST 104
== END 2017-11-23 10:35 | disposition home or self-care (01) ==
LOC: SDS 06:45 → SMU 06:45 → SDS 10:35
PROVIDERS: ATTEND Internal Medicine Gastroenterology
DX: Z46.59 Encounter for fitting and adjustment of other gastrointestinal appliance and device (principal); E66.9 Obesity, unspecified; Z68.30 Body mass index [BMI] 30.0-30.9, adult; Z88.8 Allergy status to other drugs, medicaments and biological substances; Z98.890 Other specified postprocedural states
CPT/HCPCS: 43275; 74330; 84703; J0330; J1100; J2001; J2175; J2250; J2405; J3010; J7120; Q9967

== ENCOUNTER 2018-03-21 13:15 | Emergency (ER) | payer BC ==
[~2018-03-21] VITALS: Ht 157.5 cm; Wt 76.2 kg
[2018-03-21 13:15] VITALS: BP_SYST 124
[2018-03-21] MEDS ORDERED: LORazepam 1 MG TABLET PO ONE (13:30)
[2018-03-21 13:41] LABS: BASOPHILS # (AUTO) 0.1 K/uL (0.0-0.2); BASOPHILS % (AUTO) 0.8 % (0.0-2.0); EOSINOPHILS # (AUTO) 0.1 K/uL (0.0-0.4); EOSINOPHILS % (AUTO) 1.5 % (0.0-4.0); HEMATOCRIT 39.1 % (36-48); HEMOGLOBIN 12.1 g/dL (12.0-16.0); LYMPHOCYTES # (AUTO) 1.5 K/uL (1.0-5.5); LYMPHOCYTES % (AUTO) 17.6 % (20.5-51.5); MEAN CORPUSCULAR HEMOGLOBIN 23 pg (27-31); MEAN CORPUSCULAR HGB CONC 31 % (32-36); MEAN CORPUSCULAR VOLUME 73 fL (79.0-98.0); MONOCYTES # (AUTO) 0.6 K/uL (0.0-1.0); MONOCYTES % (AUTO) 7.4 % (1.7-9.3); NEUTROPHILS # (AUTO) 6.1 K/uL (1.8-7.7); NEUTROPHILS % (AUTO) 72.7 % (40.0-70.0); PLATELET COUNT (AUTO) 375 K/uL (130-430); RED BLOOD CELL COUNT(AUTO) 5.37 MIL/uL (4.2-6.2); RED CELL DISTRIBUTION WIDTH 17.7 % (9.0-15.0); WHITE BLOOD COUNT (AUTO) 8.4 K/uL (4.8-10.8)
[2018-03-21 13:55] LABS: CALCIUM 9.6 mg/dL (8.4-11.0); CREATININE 0.84 mg/dL (0.55-1.30); POTASSIUM 3.8 mmol/L (3.5-5.1)
[2018-03-21 15:05] VITALS: BP_SYST 124
== END 2018-03-21 15:05 | disposition home or self-care (01) ==
LOC: SED 13:15
DX: R00.2 Palpitations (principal); R03.0 Elevated blood-pressure reading, without diagnosis of hypertension; Z90.49 Acquired absence of other specified parts of digestive tract; Z88.1 Allergy status to other antibiotic agents; Z88.6 Allergy status to analgesic agent; Z91.041 Radiographic dye allergy status
CPT/HCPCS: 36415; 80048; 81025; 85025; 93005; 99285

== ENCOUNTER 2018-03-27 08:04 | Emergency (ER) | payer BC ==
[~2018-03-27] VITALS: Ht 157.5 cm; Wt 73.0 kg
[2018-03-27 08:14] VITALS: BP_SYST 141
[2018-03-27] MEDS ORDERED: NACL 0.9% 1,000 ML IV ONE (08:19)
[2018-03-27] MEDS ORDERED: FAMOTIDINE PF 20 MG/2 ML VIAL IVP ONE (08:30)
[2018-03-27] MEDS ORDERED: MORPHINE 2 MG/ML INJ. SYRINGE IVP ONE (08:30)
[2018-03-27 08:49] LABS: BILIRUBIN,URINE NEGATIVE (NEGATIVE); BLOOD, URINE NEGATIVE (NEGATIVE); CLARITY/URINE CLEAR (CLEAR); COLOR,URINE YELLOW (YELLOW); GLUCOSE,URINE NEGATIVE (NEGATIVE); KETONES,URINE NEGATIVE (NEGATIVE); LEUKOCYTE ESTERASE ,URINE NEGATIVE (NEGATIVE); NITRITE, URINE NEGATIVE (NEGATIVE); PH,URINE 7.5 (5.0-8.0); PROTEIN URINE NEGATIVE (NEGATIVE); UROBILINOGEN,URINE 0.2 (0.2-1.0)
[2018-03-27 08:53] LABS: BASOPHILS % (AUTO) 0.2 % (0.0-2.0); EOSINOPHILS # (AUTO) 0.1 K/uL (0.0-0.4); EOSINOPHILS % (AUTO) 1.3 % (0.0-4.0); HEMOGLOBIN 11.5 g/dL (12.0-16.0); LYMPHOCYTES # (AUTO) 1.4 K/uL (1.0-5.5); LYMPHOCYTES % (AUTO) 19.6 % (20.5-51.5); MEAN CORPUSCULAR HEMOGLOBIN 23 pg (27-31); MEAN CORPUSCULAR HGB CONC 31 % (32-36); MEAN CORPUSCULAR VOLUME 73 fL (79.0-98.0); MONOCYTES # (AUTO) 0.5 K/uL (0.0-1.0); NEUTROPHILS # (AUTO) 5.1 K/uL (1.8-7.7); NEUTROPHILS % (AUTO) 71.9 % (40.0-70.0); PLATELET COUNT (AUTO) 317 K/uL (130-430); RED BLOOD CELL COUNT(AUTO) 5.05 MIL/uL (4.2-6.2); RED CELL DISTRIBUTION WIDTH 18.3 % (9.0-15.0); WHITE BLOOD COUNT (AUTO) 7.1 K/uL (4.8-10.8)
[2018-03-27 09:03] LABS: CALCIUM 9.1 mg/dL (8.4-11.0); CREATININE 0.82 mg/dL (0.55-1.30); POTASSIUM 3.9 mmol/L (3.5-5.1)
[2018-03-27 09:11] LABS: ALBUMIN 3.9 g/dL (3.4-4.8); TOTAL BILIRUBIN 0.4 mg/dL (0.0-1.0)
[2018-03-27] MEDS ORDERED: ONDANSETRON HCL 4 MG/2 ML VIAL IVP ONE (10:15)
[2018-03-27 15:20] VITALS: BP_SYST 133
== END 2018-03-27 15:19 | disposition home or self-care (01) ==
LOC: SED 08:04
DX: G89.29 Other chronic pain (principal); R10.84 Generalized abdominal pain; Z88.1 Allergy status to other antibiotic agents; Z88.6 Allergy status to analgesic agent; Z91.041 Radiographic dye allergy status; Z90.49 Acquired absence of other specified parts of digestive tract
CPT/HCPCS: 36415; 76700; 80053; 81003; 81025; 83690; 84703; 85025; 96361; 96374; 96375; 99285; J2270; J2405; J3490; J7030